=== PATIENT | male | born 1965 | race Caucasian/White ===

== ENCOUNTER → 2016-07-21 | Day surgery (SDC) | payer BC ==
[2016-07-12 09:15] VITALS: Ht 175.3 cm; Wt 97.7 kg
[~2016-07-21] VITALS: Ht 175.3 cm; Wt 97.7 kg
[~2016-07-21] MED LIST: ATROPINE SULFATE 0.1 MG/ML 5ML SYR IV PRN; BACITRACIN OINT 15 GM TUBE ONE; CEFAZOLIN 2000 MG/60 ML D5W IV SCH; CETI10TA10 PO; DEXAMETHASONE SOD INJ 4 MG/ML VIAL ONE; EpHEDrine SULFATE INJ 50 MG/ML AMP IV PRN; EpINEphrine INJ 1MG/ML AMP 1 MG/ML AMP ONE; FENTANYL CITRATE INJ 50 MCG/1 ML 2 ML VIAL ONE; HYDROmorphone INJ 1 MG/ML SYR IV PRN; LABETALOL HCL IV 5 MG/ML 20ML IV PRN; LACTATED RINGER'S 1000ML 1,000 ML IV SCH; LIDO 2%/EPINEPHRINE 1:100000 20 ML VIAL INFIL ONE; LIDOCAINE 4% MPF SOAK 5 ML = 1 DOSE TOP ONE; LIDOCAINE HCL 2% 2 ML VIAL (20MG/ML) ONE; LISI-788 PO; MEPERIDINE HCL 25 MG/ML CARP IV PRN; MIDAZOLAM HCL 1 MG/ML 2ML VIAL ONE; ONDANSETRON INJ 2 MG/ML 2 ML VIAL IV PRN; ONDANSETRON INJ 2 MG/ML 2 ML VIAL ONE; OXYC-57 PO; OXYCODONE/ACETAMINOPHEN 5-325 TAB PO PRN; OXYM0.0592 NAE; OXYMETAZOLINE HCL 0.05% NA SPR 15 ML BTL SCH; PROPOFOL IV EMULSION 10 MG/ML 20 ML VIAL IV ONE; SODIUM CHLORIDE 0.9% 1000ML 1,000 ML IV SCH; TAMS0.4C38 PO
--- NOTE | 2016-07-21 07:44 | History & Physical Bridge Note ---
H&P Re-Evaluation Bridge Note: I have examined the patient, reviewed the History & Physical and in the interval since the performance of the History & Physical I have noted the following changes of clinical significance: No changes noted
--- NOTE | 2016-07-21 11:28 | Discharge Instructions-SurgCtr ---
Discharge Instructions Visit Reason for Visit: Chronic Sinusitis, Polyposis Discharge Discharge Diagnosis / Problem: same Discharge Goals Goal(s): Improve function Activity Recommendations Activity Limitations: resume your previous activity Anesthesia . Post Anesthesia Instructions: If you have had General Anesthesia or IV Sedation: * Do not drive today. * Resume driving when surgeon permits. * Do not make important decisions or sign legal documents today. * Call surgeon for: 1. Temperature elevations greater than 101 degrees F. 2. Uncontrollable pain. 3. Excessive bleeding. 4. Persistent nausea and vomiting. 5. Medication intolerance (nausea, vomiting or rash). * For nausea and vomiting use only clear liquids such as: tea, soda, bouillon until nausea subsides, then gradually increase diet as tolerated. * If you have any concerns or questions, call your surgeon's office. If physician is unavailable and it is an emergency, call 911 or go to the nearest emergency room. . Instructions / Follow-Up Instructions / Follow-Up ACTIVITY RECOMMENDATIONS: * Being up and around is good, but no strenuous activity, heavy lifting or physical exertion for one week. * Keep your head elevated 30 degrees when lying down or sleeping. * Do not blow your nose for 48 hours, sniff back instead. * Avoid hot showers. OVER THE COUNTER MEDICATIONS: * You may use Tylenol * Avoid aspirin or aspirin containing products, e.g. as they may increase bleeding. SPECIAL CARE INSTRUCTIONS: * Expect to have bloody drainage from your nose and/or down your throat for one to three days. Change drip pad as needed. * Begin irrigating your nose with saline solution today, at least six to ten times per day and sniff back to help remove old clots or crust. * You may experience nasal and facial congestion, pain and pressure, this is normal. * Please call with any significant and/or progressive pain, redness, swelling around the eyes, visual changes, fever of 101.5 degrees F, active bleeding or any problems or concerns. * If active bleeding occurs, spray the nose three times at one minute intervals with Afrin spray and call or cell phone: . If unable to reach the doctor, go to the nearest Emergency Department. Special Diet: * Avoid extremely hot fluids. FOLLOW UP VISIT: Follow-up Visit with Dr. Bradford If not already scheduled, please call to schedule. Diet Recommendations Home Diet: no limitations Pending Studies Studies pending at discharge: no Medical Emergencies . Who to Call and When: Medical Emergencies: If at any time you feel your situation is an emergency, please call 911 immediately. . Non-Emergent Contact Non-Emergency issues call your: Primary Care Provider . . "Provider Documentation" section prepared by Lorena Bradford. [place] Drug Monitoring Program Search Results: no issues identified
[2016-07-21] MEDS: FENTANYL CITRATE INJ 50 MCG/1 ML 2 ML VIAL IV PRN ×2 (15:06→15:18)
[2016-07-21 15:51] VITALS: TEMP 36.6
[2016-07-21 16:27] VITALS: BP 124/85; PULSE 57; O2SAT 94
--- NOTE | 2016-07-21 16:29 | Anesthesia Progress Nt - [facility] ---
Anesthesia Post Op Note Date & Time Jul 21, 2016 at 16:29 Vital Signs Pain Intensity: 5.0 Vital Signs Past 12 Hours Date Time Temp Pulse Resp B/P Pulse Ox O2 Delivery O2 Flow Rate FiO2 07/21/16 16:27 57 16 124/85 94 Room Air 07/21/16 15:51 36.6 57 16 127/85 94 Room Air 07/21/16 15:41 59 18 07/21/16 15:41 59 18 95 07/21/16 15:38 139/90 07/21/16 15:33 131/89 07/21/16 15:31 57 9 94 07/21/16 15:31 60 18 91 07/21/16 15:29 36.6 57 16 136/98 94 Room Air 07/21/16 15:28 136/98 07/21/16 15:26 69 13 07/21/16 15:26 70 13 95 07/21/16 15:25 71 15 100 07/21/16 15:25 72 15 07/21/16 15:23 132/90 07/21/16 15:20 57 9 100 07/21/16 15:20 56 13 100 07/21/16 15:18 142/88 07/21/16 15:14 150/91 07/21/16 15:10 62 15 100 07/21/16 15:10 57 10 100 07/21/16 15:08 149/86 07/21/16 15:05 58 14 100 07/21/16 15:05 59 14 07/21/16 15:03 163/106 07/21/16 15:00 36.5 77 16 140/111 100 Humidified Oxygen 10 Mask 07/21/16 10:54 36.6 70 16 121/84 96 Room Air Notes Mental Status: alert / awake / arousable, participated in evaluation Pt Amnestic to Procedure: Yes Nausea / Vomiting: adequately controlled Pain: adequately controlled Airway Patency, RR, SpO2: stable & adequate BP & HR: stable & adequate Hydration State: stable & adequate Anesthetic Complications: no major complications apparent
--- NOTE | 2016-07-21 18:12 | OPERATIVE REPORT ---
DATE OF OPERATION: 07/21/2016 PREOPERATIVE DIAGNOSIS: Chronic sinusitis. POSTOPERATIVE DIAGNOSIS: Same. PROCEDURE: Right and left frontal, right and left sphenoid, right and left total ethmoid, and right and left maxillary sinus antrostomies. SURGEON: Dr. Bradford. ANESTHESIA: General LMA. COMPLICATIONS: None. BLOOD LOSS: 150 mL. HISTORY OF PRESENT ILLNESS: A 51-year-old gentleman who had a sinus surgery 15 years ago, presented with significant long history of recurrent chronic sinusitis and polyposis, has a large septal perforation, has a previous turbinate resection, but lateralized residual middle turbinate that with stenosis blocking the nasofrontal duct and the entire middle meatus and polyps blocking the middle meatus. DESCRIPTION OF PROCEDURE: The patient was brought to the operating room and was placed in supine position. General anesthesia was induced using LMA, prepped, draped in usual sterile manner. [employer] device calibrated and used during the entire procedure. The nose was decongested using cottonoids with topical solution of 4 mL of 4% Xylocaine mixed with 1 mL of epinephrine. Injection of 2% Xylocaine with 1:100,000 strength epinephrine was also used. The frontal sinuses could not be cannulated because of severe amount of stenosis and lateralization of the residual middle turbinate. Therefore, the sphenoids were cannulated with guidewire and dilated using the 6 mm balloon on the right and on the left side, both done with computer guidance. The right side appeared to have been drilled fairly open from previously; however, the left side was tight. The right nasofrontal duct could not be cannulated initially; therefore, the shaver coupled with the [employer] device was used to open up the right middle meatus following the anterior wall and then the posterior wall of the agger nasi cell following the skull base superiorly and lamina papyracea laterally and exonerating all the anterior and then all the posterior ethmoid air cells up to the face of the sphenoid. At this point, the nasofrontal duct was cannulated with guidewire with [employer] computer guidance and dilated using the 6 mm balloon and the mini stent was placed in the nasofrontal duct. At this point, maxillary sinus was opened. 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 The natural ostia was found using the seeker and then opened up posteriorly using the seeker and using the shaver. Sphenoid was opened by removing polypoid tissue at the inferior border of the superior turbinate and the residual middle turbinate which pretty much had been 80% cut out. In this manner, the sphenoidotomy, total ethmoidectomy, nasal frontal sinusotomy, and maxillary sinus antrostomy was completed. The left frontal sinusotomy, sphenoidotomy, total ethmoidectomy, and maxillary sinus antrostomy performed in similar manner. Again, there was stenosis of the nasal frontal duct from adhesions from the residual middle turbinate. 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 The mini Propel stents were placed in nasal frontal duct and regular stents placed in the middle meatus area. The patient tolerated the procedure well and was taken to recovery area in satisfactory condition. I attest to the content of the Intraoperative Record and any orders documented therein. Any exceptio ns are noted below.
== END | disposition home or self-care (01) ==
LOC: X.SURG 10:39
PROVIDERS: ATTEND Otolaryngology
DX: J32.9 Chronic sinusitis, unspecified (principal); Z98.890 Other specified postprocedural states